=== PATIENT | male | born 1955 | race Caucasian/White ===

== ENCOUNTER 2020-12-15 12:59 | Outpatient (CLI) | payer OTHER, SELFPAY ==
--- NOTE | ~2020-12-15 | XR_ITS ---
XR abdomen/kub 1V DATE: 12/15/2020 13:23 INDICATION: Left ureteral stone TECHNIQUE: AP projection, 2 views COMPARISON: None FINDINGS: Possible faintly calcified 5 mm calculus at distal right ureter; this would be more definit ively confirmed or excluded by noncontrast CT abdomen pelvis examination. The psoas shadows are intact. No visceromegaly. No evidence of bowel obstruction. Degenerative changes of the thoracic and lumbar spine. The included skeletal structures are otherwise unremarkable. IMPRESSION: Possible faintly calcified 5 mm distal right ureteral calculus; noncontrast CT abdomen pe lvis examination would be more definitive Reviewed, dictated and finalized at [facility]. Reviewed, dictated and finalized at [facility]. IMPRESSION: Possible faintly calcified 5 mm distal right ureteral calculus; non contrast CT abdomen pelvis examination would be more definitive
== END 2020-12-15 13:00 | disposition home or self-care (01) ==
PROVIDERS: PCP Internal Medicine; Visit Provider Urology
DX: N20.1 Calculus of ureter (principal)
CPT/HCPCS: 74018